=== PATIENT | male | born 1990 | race Caucasian/White ===

== ENCOUNTER 2019-09-21 14:17 | Emergency (ER) | payer BC, OTHER, SELFPAY ==
[2019-09-21] MEDS ORDERED: Lidocaine 1% (PF) 30 ML VIAL ONE (14:26)
--- NOTE | 2019-09-21 15:23 | RAD ---
XR Finger(s) Lt Min 2 View History: Injury Comparison: None. Findings: No acute displaced fracture or malalignment. There is a bandage along the middle finger. Do rsal skin laceration and superficial debris along the proximal phalanx middle finger. Impression: Dorsal laceration with debris along the proximal phalanx middle finger without underlying fracture.
== END 2019-09-21 16:06 | disposition home or self-care (01) ==
LOC: NAV ERS 14:17
DX: S66.323A Laceration of extensor muscle, fascia and tendon of left middle finger at wrist and hand level, initial encounter (principal); Z79.899 Other long term (current) drug therapy; W26.8XXA Contact with other sharp object(s), not elsewhere classified, initial encounter
CPT/HCPCS: 12002; J2001

== ENCOUNTER 2021-10-03 08:59 | Emergency (ER) | payer OTHER, SELFPAY ==
[2021-10-03] MEDS ORDERED: Fluorescein Opthalmic Strip ONE (09:16)
[2021-10-03] MEDS ORDERED: Tetracaine 0.5% PF 4 ML BOT ONE (09:16)
== END 2021-10-03 10:50 | disposition home or self-care (01) ==
LOC: NAV ERS 08:59
DX: T15.02XA Foreign body in cornea, left eye, initial encounter (principal); X58.XXXA Exposure to other specified factors, initial encounter
CPT/HCPCS: 65220

== ENCOUNTER 2022-05-14 12:10 | Outpatient (CLI) | payer MEDICARE | END 2022-05-14 12:11 | disposition home or self-care (01) | LOC: NAV RAD 12:10 | PROVIDERS: ATTEND Nurse Practitioner Family | DX: S16.1XXA Strain of muscle, fascia and tendon at neck level, initial encounter (principal) | CPT/HCPCS: 72040 ==